=== PATIENT | female | born 1955 | race Caucasian/White ===

== ENCOUNTER → 2018-02-19 10:30 | Outpatient (CLI) | payer OTHER, MEDICAID, SELFPAY ==
[2018-02-19 11:45] LABS: Hemoglobin A1C% w Est Avg Glu 5.9 % (4.0-6.0)
[2018-02-19 11:50] LABS: Alanine Aminotransferase 25 IU/L (9-52); Albumin 4.1 g/dL (3.5-5.0); Albumin Globulin Ratio 1.6 (1.0-2.8); Alkaline Phosphatase 69 U/L (38-126); Aspartate Aminotransferase 22 IU/L (14-36); BUN Creatinine Ratio 23.8 (6-22); Bilirubin Total 0.8 mg/dL (0.2-1.3); Blood Urea Nitrogen 19 mg/dL (7-17); Calcium 9.8 mg/dL (8.4-10.2); Carbon Dioxide 29 mmol/L (22-32); Chloride 102 mmol/L (98-107); Cholesterol 255 mg/dL (140-199); Estimated Glomerular Filt Rate > 60.0 mL/min (>60); Globulin 2.6 g/dL (1.7-4.1); Glucose 108 mg/dL (80-110); HDL Cholesterol 49 mg/dL (40-60); HEMOLYSIS < 15 (0-50); LDL Cholesterol Calculated 161 mg/dL (<100); Potassium 4.5 mmol/L (3.4-5.1); Sodium 141 mmol/L (137-145); Total Protein 6.7 g/dL (6.3-8.2); Triglycerides 223 mg/dL (35-150)
== END ==
PROVIDERS: PCP Family Medicine; Visit Provider Family Medicine
DX: E78.5 Hyperlipidemia, unspecified (principal); I10 Essential (primary) hypertension; Z51.81 Encounter for therapeutic drug level monitoring
CPT/HCPCS: 36415; 80053; 80061; 83036

== ENCOUNTER → 2018-05-27 16:47 | Outpatient (CLI) | payer OTHER, MEDICAID, SELFPAY ==
--- NOTE | 2018-05-27 16:48 | DI.RAD.S_ITS ---
PROCEDURE: XR THORACIC SPINE 3V INDICATIONS: thoracic myopascial strain TECHNIQUE: 3 views of the thoracic spine were acquired. COMPARISON: None. FINDINGS: Bones: Patient is status post anterior fusion of lower cervical spine. Mild kyphosis in upper thoracic spine centered at T5-6 level is seen. Degenerative endplate changes are noted as well cervical spine. No acute compression fracture or traumatic spondylolisthesis. No suspicious bony lesions. 12 pairs of ribs are noted, and appear intact where visualized. Soft tissues: No paravertebral stripe thickening. IMPRESSION: Degenerative disc disease throughout thoracic spine. No acute compression fracture or traumatic spondylolisthesis. Prior anterior fusion of lower cervical spine. Dictated by: Eitan Luke M.D. on 05/27/2018 at 19:05 Approved by: Eitan Luke M.D. on 05/27/2018 at 19:07
--- NOTE | 2018-05-27 16:48 | DI.RAD.S_ITS ---
PROCEDURE: XR CERVICAL SPINE 2V OR 3V INDICATIONS: cervical radiculopathy TECHNIQUE: 3 view(s) of the cervical spine were acquired. COMPARISON: None. FINDINGS: Bones: Patient is status post anterior fusion at C4-C7 level is with intervertebral spacer placement at C4-5 through C6-7 level. No gross our loosening of failure. No compression fracture or spondylolisthesis. Degenerative disc disease at C3-4 level is seen. The lateral masses of C1 appear intact on the odontoid view. No suspicious bony lesions. Soft tissues: No prevertebral soft tissue swelling. IMPRESSION: Prior anterior fusion of C4-C7 with straightening of normal cervical lordosis. No gross hardware complication. No compression fracture or spondylolisthesis. Degenerative disc disease at C3-4 level. Dictated by: Eitan Luke M.D. on 05/27/2018 at 19:08 Approved by: Eitan Luke M.D. on 05/27/2018 at 19:10
--- NOTE | 2018-05-27 16:48 | DI.RAD.S_ITS ---
PROCEDURE: XR LUMBAR SPINE 2-3V INDICATIONS: HLA-B27 positive TECHNIQUE: 3 views of the lumbar spine were acquired. COMPARISON: None. FINDINGS: Bones: 5 [id number] vertebrae are present. There is normal bony alignment. Degenerative disc disease and bilateral facet arthrosis throughout lumbar spine is seen. No vertebral body compression fractures. No traumatic spondylolisthesis. No suspicious bony lesions. No gross ankylosis and bilateral sacroiliac joints are seen. Soft tissues: Overlying bowel gas pattern is normal. No suspicious soft tissue calcifications. IMPRESSION: Degenerative disc disease throughout lumbar spine. No compression fracture or spondylolisthesis. No gross sacroiliac joint ankylosis. Dictated by: Eitan Luke M.D. on 05/27/2018 at 19:07 Approved by: Eitan Luke M.D. on 05/27/2018 at 19:08
== END ==
PROVIDERS: PCP Family Medicine; Visit Provider Family Medicine
DX: M50.11 Cervical disc disorder with radiculopathy, high cervical region (principal); M51.36 Other intervertebral disc degeneration, lumbar region; M51.34 Other intervertebral disc degeneration, thoracic region; S29.019A Strain of muscle and tendon of unspecified wall of thorax, initial encounter; M79.7 Fibromyalgia; M12.80 Other specific arthropathies, not elsewhere classified, unspecified site; Z98.1 Arthrodesis status
CPT/HCPCS: 72040; 72072; 72100

== ENCOUNTER → 2018-07-04 10:48 | Outpatient (CLI) | payer OTHER, MEDICAID, SELFPAY ==
[2018-07-04 11:44] LABS: Alanine Aminotransferase 23 IU/L (9-52); Albumin Globulin Ratio 1.4 (1.0-2.8); Alkaline Phosphatase 65 U/L (38-126); Aspartate Aminotransferase 22 IU/L (14-36); BUN Creatinine Ratio 25.6 (6-22); Bilirubin Total 0.6 mg/dL (0.2-1.3); Blood Urea Nitrogen 23 mg/dL (7-17); Calcium 9.4 mg/dL (8.4-10.2); Carbon Dioxide 28 mmol/L (22-32); Chloride 103 mmol/L (98-107); Cholesterol 195 mg/dL (140-199); Estimated Glomerular Filt Rate > 60.0 mL/min (>60); Globulin 2.9 g/dL (1.7-4.1); Glucose 107 mg/dL (80-110); HDL Cholesterol 45 mg/dL (40-60); HEMOLYSIS < 15 (0-50); LDL Cholesterol Calculated 122 mg/dL (<100); Potassium 4.2 mmol/L (3.4-5.1); Sodium 140 mmol/L (137-145); Total Protein 6.9 g/dL (6.3-8.2); Triglycerides 138 mg/dL (35-150)
== END ==
PROVIDERS: PCP Family Medicine; Visit Provider Family Medicine
DX: I10 Essential (primary) hypertension (principal); Z51.81 Encounter for therapeutic drug level monitoring
CPT/HCPCS: 36415; 80053; 80061

== ENCOUNTER 2018-10-22 08:15 | Outpatient (RCR) | payer OTHER, MEDICAID, SELFPAY ==
--- NOTE | 2018-08-22 10:11 | PT.OIE ---
Current Diagnoses Other specific arthropathies, not elsewhere classified, unspecified site (08/21/18) Radiculopathy, cervical region (08/21/18) Fibromyalgia (08/21/18) Strain of muscle and tendon of unspecified wall of thorax, initial encounter (08/21/18) Arthrodesis status (08/21/18) Past Medical History (Last Reviewed 01/03/18 @ 12:36 by Heidi Brooke DO) Essential hypertension (Acute) Fibromyalgia (Acute) Oropharyngeal dysphagia (Acute) Recurrent major depressive disorder (Acute) Anxiety (Inactive) Carpal tunnel syndrome (Inactive) Cervical spine disease (Inactive) Chronic back pain (Inactive) Diverticular disease (Inactive) Elevated glucose (Inactive) Glaucoma (Inactive) HLA B27 (HLA B27 positive) (Inactive) History of ankle fracture (Inactive) History of chicken pox (Inactive) History of chronic cough (Inactive) History of fibromyalgia (Inactive) History of lymphoma (Inactive) History of measles (Inactive) History of osteoporosis (Inactive) History of pneumonia (Inactive) History of sleep apnea (Inactive) Mixed hyperlipidemia (Inactive) Polycystic ovarian disease (Inactive) Past Surgical History (Last Reviewed 01/03/18 @ 12:36 by Heidi Brooke DO) History of carpal tunnel surgery (Inactive) History of knee replacement (Inactive) History of neck surgery (Inactive) History of surgery on arm (Inactive) History of carpal tunnel repair History of knee replacement Status post hysterectomy Provider Visit Care Team Role Provider Type Heidi Brooke DO Attending Provider Physician Primary Care Provider Specialty: [facility] Address: [address] [place] [address] Email: [email or web address] Physical Therapy Initial Evaluation PT-OP-A Visit Information Start: 08/21/18 15:14 Freq: Status: Active Protocol: Document 08/21/18 15:15 [facility] (Rec: 08/21/18 16:32 [facility] [id number]) Out-Patient Physical Therapy Visit Information Visit Information Visit Type Initial Evaluation Visit Start Time 15:15 Visit Stop Time 16:15 Total Visit Minutes 60 Visit Number 1 Number of RISK LEAD Visits 0 Evaluation Information Evaluation Date 08/21/18 Precautions Precautions fibromyalgia history cervical fusion PT-OP-B Current Condition Start: 08/21/18 15:14 Freq: Status: Active Protocol: Document 08/21/18 15:15 [facility] (Rec: 08/21/18 15:50 [facility] [id number]) Current Condition History of Current Condition Onset Date 6 months Current Complaints left shoulder pain History of Current Condition Reports gradual onset left shoulder pain, no known cause. Most painful reaching overhead and behind her back. fibromyalgia diagnosed about 25 yrs ago right-handed Sleeps primarily on left side but some on stomach and back. Occasional numbness into left UE Prior Treatments and Tests Has used heat and ice Prior PT for neck, elder knees ( TKA). Hx fusion cervical spine, has gene for ankylosing spondylitis. Sees chiropractor regularly. Carpal tunnel surgery elder Future Testing and Treatments Planned follow up with physician after PT completed Treatment Goals Patient/Caregiver Goals Decrease pain, be able to perform usual activities Prior Functional Status Baseline Function- ADL's Independent Baseline Function- Mobility Independent Current Functional Impairments (Reported) Functional Limitations- ADL's painful to reach overhead and behind her back Functional Limitations- Work/School painful Functional Limitations- Recreation/ unable Hobbies PT-OP-C Subjective Start: 08/21/18 15:14 Freq: Status: Active Protocol: Document 08/21/18 15:15 [facility] (Rec: 08/22/18 09:00 [facility] [id number]) Patient Questionnaires Quick Dash- Upper Extremity Quick Dash UE Score 48 Quick Dash UE Impairment 40 to 59% Impaired (Score 40- 59) PT-OP-E Functional Tests Start: 08/21/18 15:14 Freq: Status: Active Protocol: Document 08/21/18 15:15 [facility] (Rec: 08/22/18 09:00 [facility] [id number]) Functional Tests Apley's Scratch Test Action 1: The subject is instructed to touch the opposite shoulder with his/her hand. This motion checks Glenohumeral adduction, internal rotation , horizontal adduction and scapular protraction Action 2: The subject is instructed to place his/her arm overhead and reach behind the neck to touch his/her upper back. This motion checks Glenohumeral abduction, external rotation and scapular upward rotation and elevation. Action 3: The subject puts his/her hand on the lower back and reaches upward as far as possible. This motion checks glenohumeral adduction, internal rotation and scapular retraction with downward rotation Action 1- Left anterior shoulder Action 1- Right posterior shoulder Action 2- Left back of head Action 2- Right C7 Action 3- Left L2 Action 3- Right T7 PT-OP-J Posture/Palpation/Skin Start: 08/21/18 15:14 Freq: Status: Active Protocol: Document 08/21/18 15:15 [facility] (Rec: 08/22/18 09:00 [facility] [id number]) Posture Evaluation Position Sitting Head/C-Spine Posture Forward Head T-Spine Posture Increased Kyphosis Shoulder Posture (L) Rounded (R) Rounded (L) Elevated Arm Posture (L) Internally Rotated (R) Internally Rotated Palpation Assessment Location upper traps Palpation Findings Soft Tissue Tightness Muscle Guarding Trigger Point Palpation Details elder left greater than right PT-OP-K Range of Motion Start: 08/21/18 15:14 Freq: Status: Active Protocol: Document 08/21/18 15:15 [facility] (Rec: 08/21/18 16:32 [facility] [id number]) Cervical Spine Range of Motion Cervical Spine Active Testing Position Sitting Flexion 59 Extension 35 Rotation Left 40 Rotation Right 40 Lateral Flexion Left 30 Lateral Flexion Right 30 ROM Limitations Bony Restriction Shoulder Goniometric Range of Motion Shoulder Measured in Degrees Left Active Shoulder ROM WFL No Testing Position Sitting Flexion 155 Extension 45 Abduction 150 External Rotation at 45 degrees 75 Abduction Internal Rotation 65 Right Active Shoulder ROM WFL Yes Testing Position Sitting Flexion 180 Extension 50 Abduction 175 External Rotation at 45 degrees 90 Abduction Internal Rotation 80 Shoulder ROM Limitations Shoulder ROM Limitations Pain Elbow/Forearm Range of Motion Elbow/Forearm Measured in Degrees elder Elbow/Forearm ROM WFL Yes PT-OP-L Special Tests Start: 08/21/18 15:14 Freq: Status: Active Protocol: Document 08/21/18 15:15 [facility] (Rec: 08/21/18 16:32 [facility] [id number]) Special Tests Shoulder Special Tests Daniel Gallo Impingement Test Results positive left Belly Press Test Results negative Elevation Impingement Test Results positive left Drop Arm Rotator Cuff Test Results negative PT-OP-M Strength Start: 08/21/18 15:14 Freq: Status: Active Protocol: Document 08/21/18 15:15 [facility] (Rec: 08/22/18 09:00 [facility] [id number]) Shoulder Strength Shoulder Manual Muscle Testing Left Flexion 4- Good- Extension 4- Good- Abduction (C5) 4- Good- External Rotation 3+ Fair+ Internal Rotation 4- Good- Comments all resisted motions painful Right Flexion 4 Good Extension 4 Good Abduction (C5) 4 Good External Rotation 4- Good- Internal Rotation 4 Good Elbow/Forearm Strength Elbow and Forearm Manual Muscle Testing elder Flexion (C6) 4+ Good+ Extension (C7) 4+ Good+ PT-OP-Q Treatments Start: 08/21/18 15:14 Freq: Status: Active Protocol: Document 08/21/18 15:15 [facility] (Rec: 08/22/18 09:00 [facility] [id number]) Self-Care/Home Management Treatment Education Patient Education Home Exercise Program Other Education issued written program PT-OP-R Modalities Start: 08/21/18 15:14 Freq: Status: Active Protocol: Document 08/21/18 15:15 [facility] (Rec: 08/22/18 09:00 [facility] [id number]) Hot Pack/Cold Pack Treatment Hot Pack Location left shoulder, c/s Patient Position Hooklying Treatment Duration (minutes) 15 Patient Tolerance Good PT-OP-T Assessment and Plan Start: 08/21/18 15:14 Freq: Status: Active Protocol: Document 08/21/18 15:15 [facility] (Rec: 08/22/18 09:00 [facility] [id number]) Physical Therapy Assessment Rehab Potential Rehabilitation Potential Good Evaluation Complexity Number of Personal Factors/Comorbidities 1-2 Number of Body Systems Impaired 3 Clinical Presentation at Evaluation Evolving Impairments Impairments Functional Activities Pain ROM Soft Tissue Mobility Strength Goals poor work ergonomics Group Home Goal (LTG) Patient to demonstrate good understanding of neutral posture and correct desk ergonomics LTG Duration 2 months Strength Racing Car Driver Goal (LTG) improve left shoulder strength to at least 4+/5 without c/o pain. Patient to be indep with HEP LTG Duration 2 months 3 Impairment ROM Group Home Goal (LTG) improve left shoulder ROM to WNL without c/o pain. Patient to be independent with HEP. LTG Duration 2 months 2 Impairment unable to reach overhead or behind her back without an increase in pain Group Home Goal (LTG) Patient able to reach overhead and behind her back and perform all other usual activities with left UE without c/o pain 1 Impairment pain Racing Car Driver Goal (LTG) Decrease pain to no greater than 3/10 LTG Duration 2 months Assessment Summary Assessment Patient presents with function -limiting pain, decreased ROM and strength left UE. Signs and symptoms consistent with impingement with postural and ergonomic factors contributory . Prior cervical spine fusion with decreased c/s ROM also likely contributory. Patient would benefit from PT to help her decrease her pain and improve her function. Physical Therapy Plan Frequency and Duration Frequency of Treatment 1x/Week Duration of Treatment 4 Plan of Care Start Date 08/21/18 Plan of Care End Date 10/16/18
--- NOTE | 2018-08-22 10:11 | PT.OPPOC ---
Current Diagnoses Other specific arthropathies, not elsewhere classified, unspecified site (08/21/18) Radiculopathy, cervical region (08/21/18) Fibromyalgia (08/21/18) Strain of muscle and tendon of unspecified wall of thorax, initial encounter (08/21/18) Arthrodesis status (08/21/18) Provider Visit Care Team Role Provider Type Heidi Brooke DO Attending Provider Physician Primary Care Provider Specialty: [facility] Address: [address] [place] [address], [facility] Email: [email or web address] Plan Of Care PT-OP-T Assessment and Plan Start: 08/21/18 15:14 Freq: Status: Active Protocol: Document 08/21/18 15:15 [facility] (Rec: 08/22/18 09:00 [facility] [id number]) Physical Therapy Assessment Rehab Potential Rehabilitation Potential Good Evaluation Complexity Number of Personal Factors/Comorbidities 1-2 Number of Body Systems Impaired 3 Clinical Presentation at Evaluation Evolving Impairments Impairments Functional Activities Pain ROM Soft Tissue Mobility Strength Goals poor work ergonomics Skilled Nursing Goal (LTG) Patient to demonstrate good understanding of neutral posture and correct desk ergonomics LTG Duration 2 months Strength Tape Calender Goal (LTG) improve left shoulder strength to at least 4+/5 without c/o pain. Patient to be indep with HEP LTG Duration 2 months 3 Impairment ROM Skilled Nursing Goal (LTG) improve left shoulder ROM to WNL without c/o pain. Patient to be independent with HEP. LTG Duration 2 months 2 Impairment unable to reach overhead or behind her back without an increase in pain Tape Calender Goal (LTG) Patient able to reach overhead and behind her back and perform all other usual activities with left UE without c/o pain 1 Impairment pain Tape Calender Goal (LTG) Decrease pain to no greater than 3/10 LTG Duration 2 months Assessment Summary Assessment Patient presents with function -limiting pain, decreased ROM and strength left UE. Signs and symptoms consistent with impingement with postural and ergonomic factors contributory . Prior cervical spine fusion with decreased c/s ROM also likely contributory. Patient would benefit from PT to help her decrease her pain and improve her function. Physical Therapy Plan Frequency and Duration Frequency of Treatment 1x/Week Duration of Treatment 4 Plan of Care Start Date 08/21/18 Plan of Care End Date 10/16/18 Plan of Care Dates Plan of Care Start Date 08/21/18 Plan of Care End Date 10/16/18 Please Sign and Return: I have reviewed this Plan of Care and certify that the skilled therapy services above are required to meet the patient?s needs. Physician Signature Date Printed Name and Credentials Clinical Instructor Signature Printed Name and Credentials
--- NOTE | 2018-09-24 17:31 | PT.OTN ---
Current Diagnoses Other specific arthropathies, not elsewhere classified, unspecified site (09/24/18) Radiculopathy, cervical region (09/24/18) Fibromyalgia (09/24/18) Strain of muscle and tendon of unspecified wall of thorax, initial encounter (09/24/18) Arthrodesis status (09/24/18) Physical Therapy Treatment Note PT-OP-A Visit Information Start: 08/21/18 15:14 Freq: Status: Active Protocol: Document 09/24/18 08:20 [facility] (Rec: 09/24/18 09:04 [facility] [id number]) Out-Patient Physical Therapy Visit Information Visit Information Visit Type Treatment Note Visit Start Time 08:15 Visit Stop Time 09:15 Total Visit Minutes 60 Visit Number 2 Number of BULK COOLER INSTALLER Visits 0 Evaluation Information Evaluation Date 08/21/18 Precautions Precautions fibromyalgia history cervical fusion PT-OP-B Current Condition Start: 08/21/18 15:14 Freq: Status: Active Protocol: Document 09/24/18 08:20 [facility] (Rec: 09/24/18 09:04 [facility] [id number]) Current Condition Treatment Goals Patient/Caregiver Goals Decrease pain, be able to perform usual activities PT-OP-C Subjective Start: 08/21/18 15:14 Freq: Status: Active Protocol: Document 08/21/18 15:15 [facility] (Rec: 08/22/18 09:00 [facility] [id number]) Patient Questionnaires Quick Dash- Upper Extremity Quick Dash UE Score 48 Quick Dash UE Impairment 40 to 59% Impaired (Score 40- 59) PT-OP-E Functional Tests Start: 08/21/18 15:14 Freq: Status: Active Protocol: Document 08/21/18 15:15 [facility] (Rec: 08/22/18 09:00 [facility] [id number]) Functional Tests Apley's Scratch Test Action 1: The subject is instructed to touch the opposite shoulder with his/her hand. This motion checks Glenohumeral adduction, internal rotation , horizontal adduction and scapular protraction Action 2: The subject is instructed to place his/her arm overhead and reach behind the neck to touch his/her upper back. This motion checks Glenohumeral abduction, external rotation and scapular upward rotation and elevation. Action 3: The subject puts his/her hand on the lower back and reaches upward as far as possible. This motion checks glenohumeral adduction, internal rotation and scapular retraction with downward rotation Action 1- Left anterior shoulder Action 1- Right posterior shoulder Action 2- Left back of head Action 2- Right C7 Action 3- Left L2 Action 3- Right T7 PT-OP-J Posture/Palpation/Skin Start: 08/21/18 15:14 Freq: Status: Active Protocol: Document 08/21/18 15:15 [facility] (Rec: 08/22/18 09:00 [facility] [id number]) Posture Evaluation Position Sitting Head/C-Spine Posture Forward Head T-Spine Posture Increased Kyphosis Shoulder Posture (L) Rounded (R) Rounded (L) Elevated Arm Posture (L) Internally Rotated (R) Internally Rotated Palpation Assessment Location upper traps Palpation Findings Soft Tissue Tightness Muscle Guarding Trigger Point Palpation Details elder left greater than right PT-OP-K Range of Motion Start: 08/21/18 15:14 Freq: Status: Active Protocol: Document 08/21/18 15:15 [facility] (Rec: 08/21/18 16:32 [facility] [id number]) Cervical Spine Range of Motion Cervical Spine Active Testing Position Sitting Flexion 59 Extension 35 Rotation Left 40 Rotation Right 40 Lateral Flexion Left 30 Lateral Flexion Right 30 ROM Limitations Bony Restriction Shoulder Goniometric Range of Motion Shoulder Measured in Degrees Left Active Shoulder ROM WFL No Testing Position Sitting Flexion 155 Extension 45 Abduction 150 External Rotation at 45 degrees 75 Abduction Internal Rotation 65 Right Active Shoulder ROM WFL Yes Testing Position Sitting Flexion 180 Extension 50 Abduction 175 External Rotation at 45 degrees 90 Abduction Internal Rotation 80 Shoulder ROM Limitations Shoulder ROM Limitations Pain Elbow/Forearm Range of Motion Elbow/Forearm Measured in Degrees elder Elbow/Forearm ROM WFL Yes PT-OP-L Special Tests Start: 08/21/18 15:14 Freq: Status: Active Protocol: Document 08/21/18 15:15 [facility] (Rec: 08/21/18 16:32 [facility] [id number]) Special Tests Shoulder Special Tests Daniel Gallo Impingement Test Results positive left Belly Press Test Results negative Elevation Impingement Test Results positive left Drop Arm Rotator Cuff Test Results negative PT-OP-M Strength Start: 08/21/18 15:14 Freq: Status: Active Protocol: Document 08/21/18 15:15 [facility] (Rec: 08/22/18 09:00 [facility] [id number]) Shoulder Strength Shoulder Manual Muscle Testing Left Flexion 4- Good- Extension 4- Good- Abduction (C5) 4- Good- External Rotation 3+ Fair+ Internal Rotation 4- Good- Comments all resisted motions painful Right Flexion 4 Good Extension 4 Good Abduction (C5) 4 Good External Rotation 4- Good- Internal Rotation 4 Good Elbow/Forearm Strength Elbow and Forearm Manual Muscle Testing elder Flexion (C6) 4+ Good+ Extension (C7) 4+ Good+ PT-OP-Q Treatments Start: 08/21/18 15:14 Freq: Status: Active Protocol: Document 09/24/18 08:20 [facility] (Rec: 09/24/18 09:04 [facility] [id number]) Cardio Equipment Recumbent Elliptical (Biodex) Duration (Minutes) 6 Resistance 1-1.0 Seat Position 9 Therapeutic Exercises Supine Exercises pec stretch Side bilateral Comments manual chest press Equipment Used wand Reps/Minutes 10x sh flex Equipment Used wand Reps/Minutes 10x Sitting Exercises scap squeeze Reps/Minutes 10x pulleys sh flex, scaption Reps/Minutes 10x sh shrugs, rolls Reps/Minutes 5x ea Standing Exercises sh ext Reps/Minutes 10x Comments wand Sh ER Reps/Minutes 10x row, sh ext Resistance L1 TB Reps/Minutes 6x doorway stretch Reps/Minutes 2x Manual Therapy Treatment Soft Tissue Mobilization upper traps, rhomboids, bicep Intensity/Depth mod Body Position Hooklying PT-OP-R Modalities Start: 08/21/18 15:14 Freq: Status: Active Protocol: Document 08/21/18 15:15 [facility] (Rec: 08/22/18 09:00 [facility] [id number]) Hot Pack/Cold Pack Treatment Hot Pack Location left shoulder, c/s Patient Position Hooklying Treatment Duration (minutes) 15 Patient Tolerance Good PT-OP-T Assessment and Plan Start: 08/21/18 15:14 Freq: Status: Active Protocol: Document 09/24/18 08:20 [facility] (Rec: 09/24/18 09:04 [facility] [id number]) Physical Therapy Assessment Goals poor work ergonomics Telephone Operators Supervisor Goal (LTG) Patient to demonstrate good understanding of neutral posture and correct desk ergonomics LTG Duration 2 months Strength Telephone Operators Supervisor Goal (LTG) improve left shoulder strength to at least 4+/5 without c/o pain. Patient to be indep with HEP LTG Duration 2 months 3 Impairment ROM Jail Goal (LTG) improve left shoulder ROM to WNL without c/o pain. Patient to be independent with HEP. LTG Duration 2 months 2 Impairment unable to reach overhead or behind her back without an increase in pain Telephone Operators Supervisor Goal (LTG) Patient able to reach overhead and behind her back and perform all other usual activities with left UE without c/o pain 1 Impairment pain Telephone Operators Supervisor Goal (LTG) Decrease pain to no greater than 3/10 LTG Duration 2 months Assessment Summary Assessment Due to 's and daughter' s illnesses patient has been very busy and stressed, unable to attend PT or perform HEP. Fair tolerance for ther ex today with mod verbal and manual cues for correct performance, especially to relax upper traps due to overactivation. Physical Therapy Plan Frequency and Duration Frequency of Treatment 1x/Week Duration of Treatment 4 Plan of Care Start Date 08/21/18 Plan of Care End Date 10/16/18 Next Visit Focus/Plan Next Note Type Treatment Note
--- NOTE | 2018-10-22 09:07 | PT.OTN ---
Current Diagnoses Other specific arthropathies, not elsewhere classified, unspecified site (10/22/18) Radiculopathy, cervical region (10/22/18) Fibromyalgia (10/22/18) Strain of muscle and tendon of unspecified wall of thorax, initial encounter (10/22/18) Arthrodesis status (10/22/18) Physical Therapy Treatment Note PT-OP-A Visit Information Start: 08/21/18 15:14 Freq: Status: Active Protocol: Document 10/22/18 08:15 [facility]AK (Rec: 10/22/18 08:21 [facility] [id number]) Out-Patient Physical Therapy Visit Information Visit Information Visit Type Treatment Note Visit Start Time 08:15 Visit Stop Time 09:10 Total Visit Minutes 55 Visit Number 3 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 Hasn't tried doing any yardwork. High stress level persists PT-OP-E Functional Tests Start: 08/21/18 15:14 Freq: Status: Active Protocol: Document 08/21/18 15:15 SAK (Rec: 08/22/18 09:00 [facility] [id number]) Functional Tests Apley's Scratch Test Action 1: The subject is instructed to touch the opposite shoulder with his/her hand. This motion checks Glenohumeral adduction, internal rotation , horizontal adduction and scapular protraction Action 2: The subject is instructed to place his/her arm overhead and reach behind the neck to touch his/her upper back. This motion checks Glenohumeral abduction, external rotation and scapular upward rotation and elevation. Action 3: The subject puts his/her hand on the lower back and reaches upward as far as possible. This motion checks glenohumeral adduction, internal rotation and scapular retraction with downward rotation Action 1- Left anterior shoulder Action 1- Right posterior shoulder Action 2- Left back of head Action 2- Right C7 Action 3- Left L2 Action 3- Right T7 PT-OP-J Posture/Palpation/Skin Start: 08/21/18 15:14 Freq: Status: Active Protocol: Document 08/21/18 15:15 SAK (Rec: 08/22/18 09:00 [facility] [id number]) Posture Evaluation Position Sitting Head/C-Spine Posture Forward Head T-Spine Posture Increased Kyphosis Shoulder Posture (L) Rounded (R) Rounded (L) Elevated Arm Posture (L) Internally Rotated (R) Internally Rotated Palpation Assessment Location upper traps Palpation Findings Soft Tissue Tightness Muscle Guarding Trigger Point Palpation Details elder left greater than right PT-OP-K Range of Motion Start: 08/21/18 15:14 Freq: Status: Active Protocol: Document 08/21/18 15:15 SAK (Rec: 08/21/18 16:32 [facility] [id number]) Cervical Spine Range of Motion Cervical Spine Active Testing Position Sitting Flexion 59 Extension 35 Rotation Left 40 Rotation Right 40 Lateral Flexion Left 30 Lateral Flexion Right 30 ROM Limitations Bony Restriction Shoulder Goniometric Range of Motion Shoulder Measured in Degrees Left Active Shoulder ROM WFL No Testing Position Sitting Flexion 155 Extension 45 Abduction 150 External Rotation at 45 degrees 75 Abduction Internal Rotation 65 Right Active Shoulder ROM WFL Yes Testing Position Sitting Flexion 180 Extension 50 Abduction 175 External Rotation at 45 degrees 90 Abduction Internal Rotation 80 Shoulder ROM Limitations Shoulder ROM Limitations Pain Elbow/Forearm Range of Motion Elbow/Forearm Measured in Degrees elder Elbow/Forearm ROM WFL Yes PT-OP-L Special Tests Start: 08/21/18 15:14 Freq: Status: Active Protocol: Document 08/21/18 15:15 SAK (Rec: 08/21/18 16:32 [facility] [id number]) Special Tests Shoulder Special Tests Daniel Gallo Impingement Test Results positive left Belly Press Test Results negative Elevation Impingement Test Results positive left Drop Arm Rotator Cuff Test Results negative PT-OP-M Strength Start: 08/21/18 15:14 Freq: Status: Active Protocol: Document 08/21/18 15:15 SAK (Rec: 08/22/18 09:00 [facility] [id number]) Shoulder Strength Shoulder Manual Muscle Testing Left Flexion 4- Good- Extension 4- Good- Abduction (C5) 4- Good- External Rotation 3+ Fair+ Internal Rotation 4- Good- Comments all resisted motions painful Right Flexion 4 Good Extension 4 Good Abduction (C5) 4 Good External Rotation 4- Good- Internal Rotation 4 Good Elbow/Forearm Strength Elbow and Forearm Manual Muscle Testing elder Flexion (C6) 4+ Good+ Extension (C7) 4+ Good+ PT-OP-Q Treatments Start: 08/21/18 15:14 Freq: Status: Active Protocol: Document 10/22/18 08:15 [facility] (Rec: 10/22/18 08:21 [facility] [id number]) Cardio Equipment Recumbent Elliptical (Biodex) Duration (Minutes) 10 Resistance 1-1.0 Seat Position 9 Therapeutic Exercises Supine Exercises serratus punch Equipment Used wand Reps/Minutes 10x pec stretch Side bilateral Comments manual chest press Equipment Used wand Reps/Minutes 10x sh flex Equipment Used wand Reps/Minutes 10x Sitting Exercises pulleys sh flex, scaption Reps/Minutes 10x sh shrugs, rolls Reps/Minutes 5x ea Standing Exercises sh IR Equipment Used L1 TB Reps/Minutes 10x sh ext Reps/Minutes 10x Comments wand Sh ER Equipment Used L1 TB Reps/Minutes 10x row, sh ext Resistance L1 TB Reps/Minutes 6x Manual Therapy Treatment Soft Tissue Mobilization upper traps, rhomboids, bicep Intensity/Depth mod Body Position Hooklying Self-Care/Home Management Treatment Education Patient Education Home Exercise Program Other Education issued handouts for updated HEP, seated desk stretches, ergonomic sitting at desk PT-OP-R Modalities Start: 08/21/18 15:14 Freq: Status: Active Protocol: Document 10/22/18 08:15 [facility] (Rec: 10/22/18 08:28 [facility] [id number]) Hot Pack/Cold Pack Treatment Hot Pack Location left shoulder, c/s Patient Position Hooklying Treatment Duration (minutes) 15 Patient Tolerance Good PT-OP-T Assessment and Plan Start: 08/21/18 15:14 Freq: Status: Active Protocol: Document 10/22/18 08:15 [facility] (Rec: 10/22/18 08:28 [facility] [id number]) Physical Therapy Assessment Goals poor 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 Patient to be indep with HEP LTG Duration 2 months 3 Impairment ROM Longterm Goal (LTG) improve left shoulder ROM to WNL without c/o pain. Patient to be independent with HEP. 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 Stressors at home limiting progress Physical Therapy Plan Frequency and Duration Frequency of Treatment 1x/Week Duration of Treatment 2 months Plan of Care Start Date 08/21/18 Plan of Care End Date 10/16/18
--- NOTE | 2019-02-17 11:47 | PT.OPDS ---
Current Diagnoses Other specific arthropathies, not elsewhere classified, unspecified site (10/22/18) Radiculopathy, cervical region (10/22/18) Fibromyalgia (10/22/18) Strain of muscle and tendon of unspecified wall of thorax, initial encounter (10/22/18) Arthrodesis status (10/22/18) Provider Visit Care Team Role Provider Type Heidi Brooke DO Attending Provider Physician Primary Care Provider Specialty: [facility] Address: [address] [place] [address], [address], [facility] Email: [email or web address] Visit Number Visit Number 3 Discharge Summary PT-OP-B Current Condition Start: 08/21/18 15:14 Freq: Status: Active Protocol: Document 09/24/18 08:20 [facility]AK (Rec: 09/24/18 09:04 [facility] [id number]) Current Condition Treatment Goals Patient/Caregiver Goals Decrease pain, be able to perform usual activities PT-OP-C Subjective Start: 08/21/18 15:14 Freq: Status: Active Protocol: Document 10/22/18 08:15 [facility] (Rec: 10/22/18 08:21 [facility] [id number]) OP-PT Subjective Patient Comments Patient Comments Does better if stays off left side while sleeping. Hasn't tried doing any yardwork. High stress level persists PT-OP-E Functional Tests Start: 08/21/18 15:14 Freq: Status: Active Protocol: Document 08/21/18 15:15 [facility] (Rec: 08/22/18 09:00 [facility] [id number]) Functional Tests Apley's Scratch Test Action 1- Left anterior shoulder Action 1- Right posterior shoulder Action 2- Left back of head Action 2- Right C7 Action 3- Left L2 Action 3- Right T7 PT-OP-J Posture/Palpation/Skin Start: 08/21/18 15:14 Freq: Status: Active Protocol: Document 08/21/18 15:15 [facility] (Rec: 08/22/18 09:00 [facility] [id number]) Posture Evaluation Position Sitting Head/C-Spine Posture Forward Head T-Spine Posture Increased Kyphosis Shoulder Posture (L) Rounded (R) Rounded (L) Elevated Arm Posture (L) Internally Rotated (R) Internally Rotated Palpation Assessment Location upper traps Palpation Findings Soft Tissue Tightness Muscle Guarding Trigger Point Palpation Details elder left greater than right PT-OP-K Range of Motion Start: 08/21/18 15:14 Freq: Status: Active Protocol: Document 08/21/18 15:15 [facility] (Rec: 08/21/18 16:32 [facility] [id number]) Cervical Spine Range of Motion Cervical Spine Active Testing Position Sitting Flexion 59 Extension 35 Rotation Left 40 Rotation Right 40 Lateral Flexion Left 30 Lateral Flexion Right 30 ROM Limitations Bony Restriction Shoulder Goniometric Range of Motion Shoulder Left Active Shoulder ROM WFL No Testing Position Sitting Flexion 155 Extension 45 Abduction 150 External Rotation at 45 degrees 75 Abduction Internal Rotation 65 Right Active Shoulder ROM WFL Yes Testing Position Sitting Flexion 180 Extension 50 Abduction 175 External Rotation at 45 degrees 90 Abduction Internal Rotation 80 Shoulder ROM Limitations Shoulder ROM Limitations Pain Elbow/Forearm Range of Motion Elbow/Forearm elder Elbow/Forearm ROM WFL Yes PT-OP-L Special Tests Start: 08/21/18 15:14 Freq: Status: Active Protocol: Document 08/21/18 15:15 [facility] (Rec: 08/21/18 16:32 [facility] [id number]) Special Tests Shoulder Special Tests Daniel Gallo Impingement Test Results positive left Belly Press Test Results negative Elevation Impingement Test Results positive left Drop Arm Rotator Cuff Test Results negative PT-OP-M Strength Start: 08/21/18 15:14 Freq: Status: Active Protocol: Document 08/21/18 15:15 [facility] (Rec: 08/22/18 09:00 [facility] [id number]) Shoulder Strength Shoulder Manual Muscle Testing Left Flexion 4- Good- Extension 4- Good- Abduction (C5) 4- Good- External Rotation 3+ Fair+ Internal Rotation 4- Good- Comments all resisted motions painful Right Flexion 4 Good Extension 4 Good Abduction (C5) 4 Good External Rotation 4- Good- Internal Rotation 4 Good Elbow/Forearm Strength Elbow and Forearm Manual Muscle Testing elder Flexion (C6) 4+ Good+ Extension (C7) 4+ Good+ PT-OP-T Assessment and Plan Start: 08/21/18 15:14 Freq: Status: Active Protocol: Document 02/17/19 11:46 [facility] (Rec: 02/17/19 11:47 [facility] [id number]) Physical Therapy Plan Discharge Physical Therapy Discharge Comments Have not seen patient due to being ill since 10/22/18 . Will be discharged at this time. May benefit from further PT in the future.
== END 2019-02-20 08:50 | disposition home or self-care (01) ==
LOC: PHYS 08:15
PROVIDERS: PCP Family Medicine; Visit Provider Family Medicine
DX: M79.7 Fibromyalgia (principal); M54.12 Radiculopathy, cervical region; S29.019A Strain of muscle and tendon of unspecified wall of thorax, initial encounter; M12.80 Other specific arthropathies, not elsewhere classified, unspecified site; Z98.1 Arthrodesis status
CPT/HCPCS: 97010; 97110; 97140; 97162; 97535

== ENCOUNTER → 2018-11-05 12:37 | Outpatient (CLI) | payer OTHER, MEDICAID, SELFPAY | PROVIDERS: PCP Family Medicine; Visit Provider Physician Assistant | DX: J02.9 Acute pharyngitis, unspecified (principal) | CPT/HCPCS: 87070 ==

== ENCOUNTER → 2019-08-07 11:19 | Outpatient (CLI) | payer OTHER, MEDICAID, SELFPAY ==
[2019-08-07 12:16] LABS: Add Manual Diff / Slide Review NO; Basophils Absolute Auto 100 /uL (0-100); Eosinophils Absolute Auto 100 /uL (0-450); Eosinophils Percent Auto 1.6 % (2-4); Hematocrit 43.6 % (36-46); Hemoglobin 14.8 g/dL (12.0-16.0); Lymphocytes Absolute Auto 2200 /uL (1100-4500); Lymphocytes Percent Auto 39.9 % (25-40); Mean Corpuscular HGB Conc 33.9 % (30-36); Mean Corpuscular Hemoglobin 30.1 PG (26-34); Mean Corpuscular Volume 88.9 fL (80-100); Monocytes Absolute Auto 500 /uL (0-900); Monocytes Percent Auto 8.2 % (3-14); Neutrophils Absolute Auto 2800 /uL (1500-7000); Neutrophils Percent Auto 49.3 % (50-75); Platelet Count 260 X10^3/uL (150-400); Red Cell Distribution Width 13.7 % (11.6-14.8); White Blood Cell Count 5.6 X10^3/uL (4.5-11.0)
[2019-08-07 12:37] LABS: Alanine Aminotransferase 17 IU/L (<35); Albumin 4.1 g/dL (3.5-5.0); Albumin Globulin Ratio 1.4 (1.0-2.8); Alkaline Phosphatase 73 U/L (38-126); Aspartate Aminotransferase 25 IU/L (14-36); BUN Creatinine Ratio 22.5 (6-22); Bilirubin Total 0.7 mg/dL (0.2-1.3); Blood Urea Nitrogen 18 mg/dL (7-17); Calcium 9.6 mg/dL (8.4-10.2); Carbon Dioxide 26 mmol/L (22-32); Chloride 104 mmol/L (98-107); Cholesterol 206 mg/dL (140-199); Estimated Glomerular Filt Rate > 60.0 mL/min (>60); Glucose 110 mg/dL (80-110); HDL Cholesterol 46 mg/dL (40-60); HEMOLYSIS < 15 (0-50); LDL Cholesterol Calculated 131 mg/dL (<100); Magnesium 1.7 mg/dL (1.6-2.3); Potassium 4.1 mmol/L (3.4-5.1); Sodium 139 mmol/L (137-145); Total Protein 7.1 g/dL (6.3-8.2); Triglycerides 147 mg/dL (35-150)
[2019-08-07 13:24] LABS: Vitamin B12 501 pg/mL (239-931)
[2019-08-07 15:30] LABS: Vitamin D 25 Hydroxy (D3) 23.7 ng/mL (30.0-100.0)
== END ==
PROVIDERS: PCP Family Medicine; Referring Provider Physician Assistant; Visit Provider Physician Assistant
DX: M81.0 Age-related osteoporosis without current pathological fracture (principal); Z78.0 Asymptomatic menopausal state; M79.7 Fibromyalgia; E78.5 Hyperlipidemia, unspecified; R53.83 Other fatigue; Z90.722 Acquired absence of ovaries, bilateral
CPT/HCPCS: 36415; 77080; 80053; 80061; 82306; 82607; 83735; 85025

== ENCOUNTER → 2020-02-24 11:21 | Outpatient (CLI) | payer OTHER, MEDICAID, SELFPAY | PROVIDERS: PCP Family Medicine; Visit Provider Nurse Practitioner Family | DX: N89.8 Other specified noninflammatory disorders of vagina (principal); N94.9 Unspecified condition associated with female genital organs and menstrual cycle | CPT/HCPCS: 87210 ==

== ENCOUNTER → 2020-07-22 09:12 | Outpatient (CLI) | payer OTHER, MEDICAID, SELFPAY ==
[2020-07-22 10:35] LABS: Add Manual Diff / Slide Review NO; Basophils Absolute Auto 100 /uL (0-100); Basophils Percent Auto 1.1 % (0-2); Eosinophils Absolute Auto 100 /uL (0-450); Eosinophils Percent Auto 1.5 % (2-4); Hematocrit 44.1 % (36-46); Hemoglobin 14.3 g/dL (12.0-16.0); Lymphocytes Absolute Auto 2000 /uL (1100-4500); Lymphocytes Percent Auto 34.3 % (25-40); Mean Corpuscular HGB Conc 32.5 % (30-36); Mean Corpuscular Hemoglobin 28.7 PG (26-34); Mean Corpuscular Volume 88.4 fL (80-100); Monocytes Absolute Auto 500 /uL (0-900); Neutrophils Absolute Auto 3200 /uL (1500-7000); Neutrophils Percent Auto 54.1 % (50-75); Platelet Count 272 X10^3/uL (150-400); Red Blood Cell Count 4.99 X10^6/uL (4.0-5.2); Red Cell Distribution Width 13.6 % (11.6-14.8); White Blood Cell Count 5.9 X10^3/uL (4.5-11.0)
[2020-07-22 10:46] LABS: BUN Creatinine Ratio 20.3 (6-22); Blood Urea Nitrogen 15 mg/dL (7-17); Calcium 9.2 mg/dL (8.4-10.2); Carbon Dioxide 29 mmol/L (22-32); Chloride 104 mmol/L (98-107); Cholesterol 213 mg/dL (140-199); Estimated Glomerular Filt Rate > 60.0 mL/min (>60); Glucose 120 mg/dL (80-110); HDL Cholesterol 50 mg/dL (40-60); HEMOLYSIS < 15 (0-50); LDL Cholesterol Calculated 131 mg/dL (<100); Potassium 3.8 mmol/L (3.4-5.1); Sodium 137 mmol/L (137-145); Triglycerides 161 mg/dL (35-150)
[2020-07-22 11:24] LABS: Vitamin D 25 Hydroxy (D3) 21.7 ng/mL (30.0-100.0)
[2020-07-22 11:40] LABS: Thyroid Stimulating Hormone 1.12 uIU/mL (0.47-4.68)
== END ==
PROVIDERS: PCP Family Medicine; Referring Provider Family Medicine; Visit Provider Family Medicine
DX: E55.9 Vitamin D deficiency, unspecified (principal); I10 Essential (primary) hypertension; M79.7 Fibromyalgia
CPT/HCPCS: 36415; 80048; 80061; 82306; 84443; 85025

== ENCOUNTER → 2020-09-26 09:03 | Outpatient (CLI) | payer OTHER, MEDICAID, SELFPAY ==
[2020-09-26 09:40] LABS: Add Manual Diff / Slide Review NO; Basophils Absolute Auto 100 /uL (0-100); Basophils Percent Auto 0.9 % (0-2); Eosinophils Absolute Auto 200 /uL (0-450); Hematocrit 44.1 % (36-46); Hemoglobin 14.6 g/dL (12.0-16.0); Lymphocytes Absolute Auto 1800 /uL (1100-4500); Lymphocytes Percent Auto 29.2 % (25-40); Mean Corpuscular HGB Conc 33.2 % (30-36); Mean Corpuscular Hemoglobin 29.2 PG (26-34); Monocytes Absolute Auto 500 /uL (0-900); Monocytes Percent Auto 8.5 % (3-14); Neutrophils Absolute Auto 3600 /uL (1500-7000); Neutrophils Percent Auto 58.4 % (50-75); Platelet Count 262 X10^3/uL (150-400); Red Blood Cell Count 5.01 X10^6/uL (4.0-5.2); Red Cell Distribution Width 13.4 % (11.6-14.8); White Blood Cell Count 6.1 X10^3/uL (4.5-11.0)
[2020-09-26 10:11] LABS: Hemoglobin A1C% w Est Avg Glu 6.1 % (4.0-6.0)
[2020-09-26 10:30] LABS: Alanine Aminotransferase 19 IU/L (<35); Albumin 3.8 g/dL (3.5-5.0); Albumin Globulin Ratio 1.6 (1.0-2.8); Alkaline Phosphatase 67 U/L (38-126); Aspartate Aminotransferase 22 IU/L (14-36); BUN Creatinine Ratio 20.2 (6-22); Bilirubin Total 0.4 mg/dL (0.2-1.3); Blood Urea Nitrogen 19 mg/dL (7-17); Calcium 9.5 mg/dL (8.4-10.2); Carbon Dioxide 28 mmol/L (22-32); Chloride 105 mmol/L (98-107); Cholesterol 206 mg/dL (140-199); Globulin 2.4 g/dL (1.7-4.1); Glucose 128 mg/dL (80-110); HDL Cholesterol 48 mg/dL (40-60); HEMOLYSIS < 15 (0-50); LDL Cholesterol Calculated 122 mg/dL (<100); Potassium 4.2 mmol/L (3.4-5.1); Sodium 139 mmol/L (137-145); Total Protein 6.2 g/dL (6.3-8.2); Triglycerides 180 mg/dL (35-150)
[2020-09-26 10:40] LABS: Vitamin D 25 Hydroxy (D3) 54.3 ng/mL (30.0-100.0)
== END ==
PROVIDERS: PCP Family Medicine; Referring Provider Family Medicine; Visit Provider Family Medicine
DX: E55.9 Vitamin D deficiency, unspecified (principal); E78.2 Mixed hyperlipidemia; I10 Essential (primary) hypertension; R73.09 Other abnormal glucose
CPT/HCPCS: 36415; 80053; 80061; 82306; 83036; 85025

== ENCOUNTER → 2020-10-04 07:11 | Outpatient (CLI) | payer OTHER, MEDICAID, SELFPAY ==
--- NOTE | 2020-10-04 07:12 | DI.US.S_ITS ---
PROCEDURE: US SOFT TISSUE HEAD AND NECK INDICATIONS: TROUBLE SWALLOWING; LEFT SUBMANDIBULAR LUMP TECHNIQUE: Real-time scanning was performed of the neck region of interest, with image documentation. COMPARISON: None. FINDINGS: There are no visible abnormal lymph nodes or unusual subcutaneous masses. The left submandibular gland demonstrates a normal hyperechoic echotexture. There are no fluid collections visible. IMPRESSION: 1. No sonographic abnormalities. 2. If there is continued concern for lump or asymmetry, CT imaging with contrast of the neck soft tissues is recommended Dictated by: Patti Larsen M.D. on 10/04/2020 at 9:51 Approved by: Patti Larsen M.D. on 10/04/2020 at 10:06
== END ==
PROVIDERS: PCP Family Medicine; Referring Provider Family Medicine; Visit Provider Family Medicine
DX: R59.1 Generalized enlarged lymph nodes (principal); R13.10 Dysphagia, unspecified
CPT/HCPCS: 76536

== ENCOUNTER → 2020-11-24 13:12 | Outpatient (CLI) | payer MEDICARE, MEDICAID, SELFPAY ==
--- NOTE | 2020-11-24 13:15 | DI.CT.S_ITS ---
PROCEDURE: CT SOFT TISSUE NECK WO CON INDICATIONS: dysphagia, nml u/s TECHNIQUE: Non-contrast 3.0 mm axial sections acquired from the sella to the aortic arch. Additional oblique axial 3.0 mm sections acquired through the pharynx. 3 mm thick coronal and sagittal reformats were generated. For radiation dose reduction, the following was used: automated exposure control. COMPARISON: None. FINDINGS: Image quality: Excellent. Lymph nodes: No enlarged lymph nodes seen throughout the neck. Vessels: Non-opacified vessels appear normal in caliber. Neck spaces: The oropharynx, nasopharynx, and pharynx demonstrate no mucosal lesions. The vocal cords, false vocal cords, pyriform sinuses, epiglottis, vallecula, and tongue base all appear normal. Extramucosal spaces appear unremarkable. Glands: Uniform thyroid gland attenuation. No thyroid mass identified. Parotid and submandibular glands are within normal limits. Miscellaneous: Visualized brain and orbits appear normal. Lung apices appear clear. Superficial soft tissues appear normal. Postsurgical changes of C4-C7 ACDF. Mature osseous fusion at the C4-C5 and C5-C6 levels. Nonunion of the C6-C7 levels. IMPRESSION: There is no neck mass or lymphadenopathy to explain symptoms. Of potential clinical relevance, there is a bulky anterior plate and screw hardware construct spanning C4-C7. There are reports of anterior fusion hardware causing dysphagia. An esophagram could potentially be used for further evaluation if this is of clinical concern. Dictated by: Juan Dailey M.D. on 11/24/2020 at 16:45 Approved by: Juan Dailey M.D. on 11/24/2020 at 16:48
== END ==
PROVIDERS: PCP Family Medicine; Referring Provider Family Medicine; Visit Provider Family Medicine
DX: R13.10 Dysphagia, unspecified (principal); R59.9 Enlarged lymph nodes, unspecified
CPT/HCPCS: 70490

== ENCOUNTER → 2021-09-08 10:47 | Outpatient (CLI) | payer MEDICARE, MEDICAID, SELFPAY ==
--- NOTE | 2021-09-08 10:50 | DI.RAD.S_ITS ---
PROCEDURE: XR MANDIBLE MIN 4V INDICATIONS: pain TECHNIQUE: 4 views of the mandible were acquired. COMPARISON: None. FINDINGS: Bones: No fractures or dislocations. No suspicious bony lesions. Soft tissues: Visualized sinuses appear clear. No suspicious soft tissue densities. IMPRESSION: No acute fracture. No osseous lesion. If symptoms and/or clinical suspicion for pathology persist, further assessment with repeat, or advanced imaging (e.g., CT, MRI, or bone scan) may be helpful for further assessment. Dictated by: Jessie Donnelly M.D. on 09/08/2021 at 16:29 Approved by: Jessie Donnelly M.D. on 09/08/2021 at 16:29
--- NOTE | 2021-09-08 10:50 | DI.RAD.S_ITS ---
PROCEDURE: XR CERVICAL SPINE 2V OR 3V INDICATIONS: Pain TECHNIQUE: 3 view(s) of the cervical spine were acquired. COMPARISON: [facility], CR, XR CERVICAL SPINE 2V OR 3V, 05/27/2018, 16:56. FINDINGS: Postsurgical changes of C4-C7 ACDF with anterior plate and screw hardware construct. No abnormal lucency surrounding the hardware to indicate loosening. There is no hardware fracture identified. Straightening of the usual cervical lordosis. There appears to be mature osseous fusion across the intervertebral disc spaces at the operative levels. Mild disc height loss and degenerative change at C3-C4. IMPRESSION: Postsurgical changes of C4-C7 ACDF without acute complicating hardware feature. Mild adjacent segment disease at C3-C4. Dictated by: Juan Dailey M.D. on 09/08/2021 at 16:02 Approved by: Juan Dailey M.D. on 09/08/2021 at 16:03
--- NOTE | 2021-09-08 10:50 | DI.RAD.S_ITS ---
PROCEDURE: XR THORACIC SPINE 3V INDICATIONS: pain TECHNIQUE: 3 views of the thoracic spine were acquired. COMPARISON: [facility], CR, XR THORACIC SPINE 3V, 05/27/2018, 16:56. FINDINGS: Bones: No fractures or dislocations. No suspicious bony lesions. 12 pairs of ribs are noted, and appear intact where visualized. Lower cervical spine fixation hardware incompletely visualized. Mild multilevel disc height loss with endplate sclerosis and spurring. Multilevel flowing syndesmophytes. Soft tissues: No paravertebral stripe thickening. IMPRESSION: 1. Diffuse osteopenia and multilevel disc degeneration similar prior examination. 2. Multilevel flowing syndesmophytes which can be associated with ankylosing spondylitis in the appropriate clinical setting. Dictated by: Aashish FRANCOIS Interpreted: Jessie Donnelly MD on 09/08/2021 at 15:06 Transcribed by: CECILE on 09/08/2021 at 15:08 Approved by: Jessie Donnelly M.D. on 09/08/2021 at 15:53
== END ==
PROVIDERS: PCP Family Medicine; Referring Provider Family Medicine; Visit Provider Family Medicine
DX: M47.22 Other spondylosis with radiculopathy, cervical region (principal); M51.34 Other intervertebral disc degeneration, thoracic region; R68.84 Jaw pain; M85.88 Other specified disorders of bone density and structure, other site; Z98.1 Arthrodesis status
CPT/HCPCS: 70110; 72040; 72072

== ENCOUNTER → 2022-04-26 14:14 | Outpatient (CLI) | payer MEDICARE, MEDICAID, SELFPAY ==
[2022-04-26 15:05] LABS: Add Manual Diff / Slide Review NO; Basophils Absolute Auto 100 /uL (0-100); Basophils Percent Auto 1.2 % (0-2); Eosinophils Absolute Auto 100 /uL (0-450); Eosinophils Percent Auto 1.8 % (2-4); Hemoglobin 14.2 g/dL (12.0-16.0); Lymphocytes Absolute Auto 1600 /uL (1100-4500); Lymphocytes Percent Auto 37.1 % (25-40); Mean Corpuscular HGB Conc 33.1 % (30-36); Mean Corpuscular Hemoglobin 28.1 PG (26-34); Mean Corpuscular Volume 84.8 fL (80-100); Monocytes Absolute Auto 500 /uL (0-900); Monocytes Percent Auto 11.3 % (3-14); Neutrophils Absolute Auto 2100 /uL (1500-7000); Neutrophils Percent Auto 48.6 % (50-75); Platelet Count 259 X10^3/uL (150-400); Red Blood Cell Count 5.07 X10^6/uL (4.0-5.2); Red Cell Distribution Width 13.9 % (11.6-14.8); White Blood Cell Count 4.3 X10^3/uL (4.5-11.0)
[2022-04-26 15:16] LABS: Hemoglobin A1C% w Est Avg Glu 5.6 % (4.0-6.0)
[2022-04-26 15:28] LABS: Alanine Aminotransferase 21 IU/L (<35); Albumin Globulin Ratio 1.3 (1.0-2.8); Alkaline Phosphatase 87 U/L (38-126); Aspartate Aminotransferase 28 IU/L (14-36); BUN Creatinine Ratio 17.9 (6-22); Bilirubin Total 0.7 mg/dL (0.2-1.3); Blood Urea Nitrogen 17 mg/dL (7-17); Calcium 9.3 mg/dL (8.4-10.2); Carbon Dioxide 25 mmol/L (22-32); Chloride 103 mmol/L (98-107); Cholesterol 219 mg/dL (140-199); Estimated Glomerular Filt Rate > 60 mL/min (>60); Globulin 3.1 g/dL (1.7-4.1); Glucose 113 mg/dL (80-110); HDL Cholesterol 47 mg/dL (40-60); HEMOLYSIS < 15 (0-50); LDL Cholesterol Calculated 134 mg/dL (<100); Potassium 3.9 mmol/L (3.4-5.1); Sodium 137 mmol/L (137-145); Total Protein 7.1 g/dL (6.3-8.2); Triglycerides 188 mg/dL (35-150)
[2022-04-26 15:40] LABS: Free T3, Triiodothyronine Free 3.69 pg/mL (2.77-5.27); Free T4, Direct Thyroxine 1.13 ng/dL (0.78-2.19)
[2022-04-26 15:54] LABS: Thyroid Stimulating Hormone 1.02 uIU/mL (0.47-4.68)
[2022-04-26 16:57] LABS: Vitamin D 25 Hydroxy (D3) 44.1 ng/mL (30.0-100.0)
== END ==
PROVIDERS: PCP Family Medicine; Referring Provider Family Medicine; Visit Provider Family Medicine
DX: E55.9 Vitamin D deficiency, unspecified (principal); R73.03 Prediabetes; E78.2 Mixed hyperlipidemia; F33.41 Major depressive disorder, recurrent, in partial remission; I10 Essential (primary) hypertension; M79.7 Fibromyalgia; R13.10 Dysphagia, unspecified; R59.9 Enlarged lymph nodes, unspecified; R73.09 Other abnormal glucose; Z68.41 Body mass index [BMI] 40.0-44.9, adult
CPT/HCPCS: 36415; 80053; 80061; 82306; 83036; 84439; 84443; 84481; 85025

== ENCOUNTER → 2023-03-14 13:32 | Outpatient (CLI) | payer MEDICARE, MEDICAID, SELFPAY ==
[2023-03-14 14:26] LABS: Add Manual Diff / Slide Review NO; Basophils Absolute Auto 0 /uL (0-100); Basophils Percent Auto 0.9 % (0-2); Eosinophils Absolute Auto 0 /uL (0-450); Eosinophils Percent Auto 0.9 % (2-4); Hemoglobin 14.7 g/dL (12.0-16.0); Lymphocytes Absolute Auto 1300 /uL (1100-4500); Lymphocytes Percent Auto 27.6 % (25-40); Mean Corpuscular HGB Conc 33.4 % (30-36); Mean Corpuscular Hemoglobin 29.2 PG (26-34); Mean Corpuscular Volume 87.5 fL (80-100); Monocytes Absolute Auto 500 /uL (0-900); Monocytes Percent Auto 11.4 % (3-14); Neutrophils Absolute Auto 2900 /uL (1500-7000); Neutrophils Percent Auto 59.2 % (50-75); Platelet Count 277 X10^3/uL (150-400); Red Blood Cell Count 5.03 X10^6/uL (4.0-5.2); Red Cell Distribution Width 13.3 % (11.6-14.8); White Blood Cell Count 4.8 X10^3/uL (4.5-11.0)
[2023-03-14 15:00] LABS: Alanine Aminotransferase 27 IU/L (<35); Albumin 4.3 g/dL (3.5-5.0); Albumin Globulin Ratio 1.5 (1.0-2.8); Alkaline Phosphatase 73 U/L (38-126); Aspartate Aminotransferase 32 IU/L (14-36); BUN Creatinine Ratio 15.1 (6-22); Bilirubin Total 0.7 mg/dL (0.2-1.3); Blood Urea Nitrogen 16 mg/dL (7-17); Calcium 9.7 mg/dL (8.4-10.2); Carbon Dioxide 26 mmol/L (22-32); Chloride 104 mmol/L (98-107); Cholesterol 207 mg/dL (140-199); Estimated Glomerular Filt Rate 58 mL/min (>60); Globulin 2.9 g/dL (1.7-4.1); Glucose 95 mg/dL (80-110); HDL Cholesterol 57 mg/dL (40-60); HEMOLYSIS < 15 (0-50); LDL Cholesterol Calculated 132 mg/dL (<100); Potassium 4.1 mmol/L (3.4-5.1); Sodium 138 mmol/L (137-145); Total Protein 7.2 g/dL (6.3-8.2); Triglycerides 90 mg/dL (35-150)
[2023-03-14 15:03] LABS: Hemoglobin A1C% w Est Avg Glu 5.5 % (4.0-6.0)
== END ==
PROVIDERS: PCP Family Medicine; Referring Provider Family Medicine; Visit Provider Family Medicine
DX: E78.2 Mixed hyperlipidemia (principal); R73.03 Prediabetes; I10 Essential (primary) hypertension; R73.09 Other abnormal glucose; Z68.41 Body mass index [BMI] 40.0-44.9, adult
CPT/HCPCS: 36415; 80053; 80061; 83036; 85025

== ENCOUNTER → 2023-10-30 09:11 | Outpatient (CLI) | payer MEDICARE, MEDICAID, SELFPAY ==
[2023-10-30 10:26] LABS: Alanine Aminotransferase 18 IU/L (<35); Albumin 3.8 g/dL (3.5-5.0); Albumin Globulin Ratio 1.5 (1.0-2.8); Alkaline Phosphatase 82 U/L (38-126); Aspartate Aminotransferase 21 IU/L (14-36); Bilirubin Total 0.6 mg/dL (0.2-1.3); Blood Urea Nitrogen 15 mg/dL (7-17); Calcium 9.3 mg/dL (8.4-10.2); Carbon Dioxide 29 mmol/L (22-32); Chloride 108 mmol/L (98-107); Estimated Glomerular Filt Rate > 60 mL/min (>60); Globulin 2.5 g/dL (1.7-4.1); Glucose 102 mg/dL (80-110); HEMOLYSIS < 15 (0-50); Potassium 3.7 mmol/L (3.4-5.1); Sodium 140 mmol/L (137-145); Total Protein 6.3 g/dL (6.3-8.2)
== END ==
LOC: LAB 09:17
PROVIDERS: PCP Family Medicine; Referring Provider Nurse Practitioner Psychiatric/Mental Health; Visit Provider Nurse Practitioner Psychiatric/Mental Health
DX: F33.2 Major depressive disorder, recurrent severe without psychotic features (principal); F43.10 Post-traumatic stress disorder, unspecified
CPT/HCPCS: 36415; 80053

== ENCOUNTER → 2023-12-17 09:46 | Outpatient (CLI) | payer MEDICARE, MEDICAID, SELFPAY ==
--- NOTE | 2023-12-17 09:47 | DI.RAD.S_ITS ---
PROCEDURE: XR DEXA AXIAL SKELETON INDICATIONS: Osteopenia diagnosed 4 years ago COMPARISON: [facility], , XR DEXA AXIAL SKELETON, 08/07/2019, 13:46. FINDINGS: Lumbar Spine: Bone mineral density 0.954 g/cm2, T score -0.8, previously -0.2, dissimilar scan type does not allow for statistical comparison. Left Hip: Bone mineral density 0.670 g/cm2, T score -2.2, previously -1.9, dissimilar scan type does not allow for statistical comparison. Left Femoral Neck: Bone mineral density 0.507 g/cm2, T score -3.1, osteoporosis. Right Hip: Bone mineral density is 0.615 g/cm2, T score -2.7, previously -2, dissimilar scan type does not allow for statistical comparison. Right Femoral Neck: Bone mineral density 0.491 g/cm2, T score -3.2, osteoporosis. Fracture Risk Calculation (when applicable): Not reported due to osteoporosis diagnosis. (T score greater or equal to -1.0 to: NORMAL) (T score from -1.1 to -2.4: OSTEOPENIA) (T score less than or equal to -2.5: OSTEOPOROSIS) IMPRESSION: Osteoporosis. Dissimilar scan type does not allow for statistical comparison. Follow-up guidelines as follows: Osteoporosis: Consider a repeat DEXA and Vertebral Fracture Assessment (VFA) exam in 2 years or sooner if medically necessary, to reassess this patient's status. Osteopenia: Consider a repeat DEXA in 2-3 years to reassess this patient's status, or if there is a new clinical indication. Normal: Consider a repeat DEXA in 5 years or sooner, or if there is a new clinical indication. All treatment decisions require clinical judgment and consideration of individual patient factors, including patient preferences, comorbidities, previous drug use, risk factors not captured in the FRAX model (e.g., frailty, falls, vitamin D deficiency, increased bone turnover, interval significant decline in bone density ) and possible under- or over-estimation of fracture risk by FRAX. In addition, the NOF Guide recommends that FDA-approved medical therapies be considered in postmenopausal women and men age >= 50 years with a: * Hip or vertebral (clinical or morphometric) fracture * T-score of <=-2.5 at the spine or hip * Ten-year fracture probability by FRAX of >= 3% for hip fracture or >=20% for major osteoporotic fracture. People with diagnosed cases of osteoporosis or at high risk for fracture should have regular bone mineral density tests. For patients eligible for Medicare, routine testing is allowed once every 2 years. The testing frequency can be increased to one year for patients who have rapidly progressing disease, those who are receiving or discontinuing medical therapy to restore bone mass, or have additional risk factors. Dictated by: Brandan Cortez M.D. on 12/17/2023 at 12:21 Approved by: Brandan Cortez M.D. on 12/17/2023 at 12:23
== END ==
LOC: RAD 09:47
PROVIDERS: PCP Family Medicine; Referring Provider Family Medicine; Visit Provider Family Medicine
DX: M81.0 Age-related osteoporosis without current pathological fracture
CPT/HCPCS: 77080

== ENCOUNTER → 2024-10-20 10:20 | Outpatient (CLI) | payer MEDICARE, MEDICAID, SELFPAY ==
[2024-10-20 11:23] LABS: Add Manual Diff / Slide Review NO; Basophils Absolute Auto 100 /uL (0-100); Basophils Percent Auto 1.3 % (0-2); Eosinophils Absolute Auto 100 /uL (0-450); Eosinophils Percent Auto 1.2 % (2-4); Hematocrit 44.5 % (36-46); Hemoglobin 15.2 g/dL (12.0-16.0); Lymphocytes Absolute Auto 2000 /uL (1100-4500); Lymphocytes Percent Auto 36.8 % (25-40); Mean Corpuscular HGB Conc 34.2 % (30-36); Mean Corpuscular Hemoglobin 29.8 PG (26-34); Mean Corpuscular Volume 87.2 fL (80-100); Monocytes Absolute Auto 500 /uL (0-900); Monocytes Percent Auto 9.6 % (3-14); Neutrophils Absolute Auto 2800 /uL (1500-7000); Neutrophils Percent Auto 51.1 % (50-75); Platelet Count 243 X10^3/uL (150-400); Red Cell Distribution Width 13.3 % (11.6-14.8); White Blood Cell Count 5.6 X10^3/uL (4.5-11.0)
[2024-10-20 11:58] LABS: Alanine Aminotransferase 22 IU/L (<35); Albumin 4.2 g/dL (3.5-5.0); Albumin Globulin Ratio 1.7 (1.0-2.8); Alkaline Phosphatase 90 U/L (38-126); Aspartate Aminotransferase 27 IU/L (14-36); BUN Creatinine Ratio 20.8 (6-22); Bilirubin Total 0.9 mg/dL (0.2-1.3); Blood Urea Nitrogen 21 mg/dL (7-17); Calcium 9.7 mg/dL (8.4-10.2); Carbon Dioxide 25 mmol/L (22-32); Chloride 104 mmol/L (98-107); Cholesterol 242 mg/dL (140-199); Estimated Glomerular Filt Rate > 60 mL/min (>60); Globulin 2.5 g/dL (1.7-4.1); Glucose 121 mg/dL (70-99); HDL Cholesterol 64 mg/dL (40-60); HEMOLYSIS < 15 (0-50); LDL Cholesterol Calculated 146 mg/dL (<100); Potassium 4.1 mmol/L (3.4-5.1); Sodium 137 mmol/L (137-145); Total Protein 6.7 g/dL (6.3-8.2); Triglycerides 158 mg/dL (35-150)
[2024-10-20 12:22] LABS: Vitamin D 25 Hydroxy (D3) 33.4 ng/mL (30.0-100.0)
== END ==
PROVIDERS: PCP Family Medicine; Referring Provider Family Medicine; Visit Provider Family Medicine
DX: I10 Essential (primary) hypertension (principal); E55.9 Vitamin D deficiency, unspecified; E78.2 Mixed hyperlipidemia; Z68.41 Body mass index [BMI] 40.0-44.9, adult
CPT/HCPCS: 36415; 80053; 80061; 82306; 85025

== ENCOUNTER → 2025-05-10 11:37 | Outpatient (CLI) | payer MEDICARE, MEDICAID, SELFPAY | PROVIDERS: PCP Family Medicine; Visit Provider Obstetrics & Gynecology | DX: N89.8 Other specified noninflammatory disorders of vagina (principal) | CPT/HCPCS: 87491; 87563; 87591 ==